=== PATIENT | male | born 1985 | race African-American/Black ===

== ENCOUNTER 2020-10-18 12:02 | Emergency (ER) | payer OTHER ==
[~2020-10-18] VITALS: Ht 190.5 cm; Wt 86.0 kg
--- NOTE | 2020-10-18 12:22 | NUR ---
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
[2020-10-18 12:59] VITALS: BP 122/68
== END 2020-10-18 13:01 | disposition home or self-care (01) ==
LOC: ED 13:00
DX: R05 Cough (principal)
CPT/HCPCS: 99281